=== PATIENT | female | born 1985 | race Caucasian/White ===

== ENCOUNTER → 2021-02-27 14:38 | Outpatient (CLI) | payer OTHER, SELFPAY ==
--- NOTE | ~2021-02-27 | US_ITS ---
EXAMINATION: US transvaginal EXAM DATE: 02/27/2021 14:55 INDICATION: Check IUD position. TECHNIQUE: Pelvic transvaginal sonogram was performed. There are multiple grayscale and Doppler imag es available for interpretation. Comparison is made to prior examination from 04/24/2018. FINDINGS: Uterus measures 7.9 x 4.4 x 4.4 cm, with IUD centrally located inside the endometrial cavi ty. Endometrial stripe measures 3 mm, within normal limits. There is no free pelvic fluid. Right adnexa: The ovary measures 2.4 x 1.9 x 3.0 cm and is morphologically normal. Ovarian vascular f low confirmed. Left adnexa: The ovary measures 1.6 x 1.5 x 1.4 cm and is morphologically normal. Ovarian vascular fl ow confirmed. IMPRESSION: IUD in expected position. Reviewed, dictated and finalized at location G. [facility] IMPRESSION: IUD in expected position.
== END ==
PROVIDERS: Visit Provider Nurse Practitioner
DX: Z30.431 Encounter for routine checking of intrauterine contraceptive device (principal)
CPT/HCPCS: 76830